=== PATIENT | male | born 1955 | race African-American/Black ===

== ENCOUNTER 2016-08-09 10:25 | Emergency (ER) | payer OTHER ==
[2016-08-09 10:31] VITALS: BP 133/77; PULSE 84; TEMP 97.9; BMI 29.5
[2016-08-09] MEDS ORDERED: IBUPROFEN 600 MG TABLET (FP) PO ONE ×2 (11:25→11:28)
--- NOTE | 2016-08-09 11:30 | PDOC ---
History of Present Illness - General Chief Complaint: Respiratory Stated Complaint: HEADACHE, COUGH Time Seen by Provider: 08/09/16 11:03 History Source: Patient Exam Limitations: No Limitations - History of Present Illness Timing/Duration: reports: changing over time, getting worse Past History - Travel Traveled outside of the country in the last 30 days: No Close contact w/someone who was outside of country & ill: No - Past Medical History Allergies/Adverse Reactions: Allergies Allergy/AdvReac Type Severity Reaction Status Date / Time No Known Drug Allergies Allergy Verified 08/09/16 10:31 Home Medications: Ambulatory Orders Celecoxib [Celebrex] 200 mg PO BID 12/02/13 Losartan 50Mg/Hctz 12.5MG [Hyzaar -] 1 tab PO DAILY 04/11/15 Metoprolol Tartrate 25 mg PO BID 04/11/15 Tofacitinib Citrate [Xeljanz] 5 mg PO BID 04/11/15 Methotrexate [Mexate -] 20 mg PO Q7D 09/18/15 Amlodipine Besylate [Norvasc -] 5 mg PO DAILY 08/09/16 Oseltamivir Phosphate [Tamiflu -] 75 mg PO BID #10 capsule 08/09/16 Anemia: No Asthma: No Cancer: No Cardiac Disorders: Yes CVA: No COPD: No CHF: No Dementia: No Diabetes: No GI Disorders: Yes (chronic constipation since 2009) Disorders: No HTN: Yes Hypercholesterolemia: No Liver Disease: No Suicide Attempt (Hx): No Seizures: No Thyroid Disease: No Other medical history: ARTHRITIS - Surgical History Abdominal Surgery: No Appendectomy: No Cardiac Surgery: No Cholecystectomy: No Lung Surgery: No Neurologic Surgery: No Orthopedic Surgery: Yes (Right Knee Replacement) - Family Disease History Family Disease History: Heart Disease: Father (htn) - Immunization History Td Vaccination: Yes Immunization Up to Date: Yes - Psycho/Social/Smoking Cessation Hx Anxiety: No Suicidal Ideation: No Smoking Status: Yes Smoking History: Former smoker Have you smoked in the past 12 months: No Number of Cigarettes Smoked Daily: 15 If you are a former smoker, when did you quit?: 2000 Information on smoking cessation initiated: No Hx Alcohol Use: No Drug/Substance Use Hx: No Substance Use Type: None Hx Substance Use Treatment: No *Physical Exam - Vital Signs Last Vital Signs Temp Pulse Resp BP Pulse Ox 97.9 F 84 18 133/77 96 08/09/16 10:27 08/09/16 10:27 08/09/16 10:27 08/09/16 10:27 08/09/16 10:27 - Physical Exam General Appearance: Yes: Appropriately Dressed, Mild Distress HEENT: positive: NEERU, Normal ENT Inspection, TMs Normal (congestive but landmarks easily visualized), Pharyngeal Erythema (clear), Tonsillar Erythema, Nasal Congestion, Rhinorrhea Neck: positive: Supple, Lymphadenopathy (R), Lymphadenopathy (L). negative: Tender Respiratory/Chest: positive: Lungs Clear, Normal Breath Sounds. negative: Respiratory Distress Cardiovascular: positive: Regular Rhythm, Regular Rate Gastrointestinal/Abdominal: positive: Tender, Soft Musculoskeletal: positive: Normal Inspection Extremity: positive: Normal Capillary Refill, Normal Inspection, Normal Range of Motion Integumentary: positive: Dry, Warm, Pale. negative: Normal Color Neurologic: positive: cone winder II-XII NML intact, Fully Oriented, Alert, Normal Mood/ Affect, Normal Response, Motor Strength 5/5 Progress Note - Progress Note Progress Note: Upper respiratory infection, probable influenza. Will treat with Tamiflu *DC/Admit/Observation/Transfer Diagnosis at time of Disposition: Upper respiratory infection, acute - Discharge Dispostion Disposition: HOME Condition at time of disposition: Stable Admit: No - Prescriptions Prescriptions: Oseltamivir Phosphate [Tamiflu -] 75 mg PO BID #10 capsule - Referrals Referrals: Da Lemus MD [Primary Care Provider] - - Patient Instructions Printed Discharge Instructions: DI for Influenza -- Adult Additional Instructions: Rest, drink lots of fluids: Teas, water, soups, Pedialyte Saltwater gargles Steamy showers/seem to face break up mucus Old-fashioned treatments help! Avoid contact with others until fevers and cough resolved as this is very contagious Lots of handwashing and good hygiene Continue [id number] medications for symptomatic relief Tylenol or Motrin for fever and pain Take all of Tamiflu as directed: 1 tab every 12 hours for 5 days Followup with private physician in one to 2 days as needed or if worsening Return to emergency department for worsened symptoms, fevers, dehydration Influenza takes between 5 and 7 days for resolution To not participate in any activity, work, or school until fevers and cough are gone for at least one day
== END 2016-08-09 11:40 | disposition home or self-care (01) ==
LOC: JERFT 10:25
DX: J06.9 Acute upper respiratory infection, unspecified (principal); I10 Essential (primary) hypertension; M12.9 Arthropathy, unspecified
CPT/HCPCS: 99281-25

== ENCOUNTER 2016-08-24 16:43 | Emergency (ER) | payer OTHER ==
[2016-08-24 16:47] VITALS: BP 156/99; PULSE 78; TEMP 98; BMI 29.5
--- NOTE | 2016-08-24 16:47 | PDOC ---
Rapid Medical Evaluation Time Seen by Provider: 08/24/16 16:44 Medical Evaluation: Allergies Allergy/AdvReac Type Severity Reaction Status Date / Time No Known Drug Allergies Allergy Verified 08/09/16 10:31 08/24/16 16:45 Pt comes s/p back surgery; now his right back is "killing" him. Back surgery was 5 months ago and he had a laminectomy at [facility]. Pt last saw the surgeon last week. Jaylin sent hank for an MRI, and now states that he needs another surgery. Pt was a building platform on [employer] and he slipped and fell. He is out on disabililty. Pt will be sent to fast track for evaluation and for pain med refill.
[2016-08-24] MEDS ORDERED: KETOROLAC TROMETHAMINE 60 MG/2 ML VIAL IM ONE (17:19)
[2016-08-24] MEDS ORDERED: KETOROLAC TROMETHAMINE 60 MG/2 ML VIAL ONE ×2 (17:20→17:21)
[2016-08-24] MEDS ORDERED: OXYCODONE/APAP 5/325MG COMBO TABLET PO ONE (19:14)
[2016-08-24] MEDS ORDERED: diazePAM 5 MG TABLET PO ONE (19:14)
[2016-08-24] MEDS ORDERED: diazePAM 5 MG TABLET ONE (19:20)
[2016-08-24] MEDS ORDERED: OXYCODONE/APAP 5/325MG COMBO TABLET ONE (19:20)
--- NOTE | 2016-08-24 20:17 | PDOC ---
History of Present Illness - General Chief Complaint: Pain Stated Complaint: POST OP PAIN Time Seen by Provider: 08/24/16 16:44 History Source: Patient Exam Limitations: No Limitations - History of Present Illness Initial Comments: 08/24/16 20:11 Chronic LBP; do for 2nd back surgery; with severe pain; also coughing; Occurred: reports: last week Severity: reports: moderate Pain Location: reports: back Method of Injury: Yes: other (no trauma) Past History - Past Medical History Allergies/Adverse Reactions: Allergies Allergy/AdvReac Type Severity Reaction Status Date / Time No Known Drug Allergies Allergy Verified 08/24/16 16:48 Home Medications: Ambulatory Orders Celecoxib [Celebrex] 200 mg PO BID 12/02/13 Losartan 50Mg/Hctz 12.5MG [Hyzaar -] 1 tab PO DAILY 04/11/15 Metoprolol Tartrate 25 mg PO BID 04/11/15 Tofacitinib Citrate [Xeljanz] 5 mg PO BID 04/11/15 Methotrexate [Mexate -] 20 mg PO Q7D 09/18/15 Amlodipine Besylate [Norvasc -] 5 mg PO DAILY 08/09/16 Oseltamivir Phosphate [Tamiflu -] 75 mg PO BID #10 capsule 08/09/16 Anemia: No Asthma: No Cancer: No Cardiac Disorders: Yes CVA: No COPD: No CHF: No Dementia: No Diabetes: No GI Disorders: Yes (chronic constipation since 2009) Disorders: No HTN: Yes Hypercholesterolemia: No Liver Disease: No Suicide Attempt (Hx): No Seizures: No Thyroid Disease: No - Surgical History Abdominal Surgery: No Appendectomy: No Cardiac Surgery: No Cholecystectomy: No GI Surgery: Yes (PROSTATE) Lung Surgery: No Neurologic Surgery: No Orthopedic Surgery: Yes (Right Knee Replacement) - Family Disease History Family Disease History: Heart Disease: Father (htn) - Immunization History Td Vaccination: Yes Immunization Up to Date: Yes - Psycho/Social/Smoking Cessation Hx Anxiety: No Suicidal Ideation: No Smoking Status: Yes Smoking History: Never smoked Have you smoked in the past 12 months: No Number of Cigarettes Smoked Daily: 15 If you are a former smoker, when did you quit?: 2000 Information on smoking cessation initiated: No Hx Alcohol Use: No Drug/Substance Use Hx: No Substance Use Type: None Hx Substance Use Treatment: No Trauma Specific PMHX - Complaint Specific PMHX Arthritis: Yes Review of Systems - Review of Systems Constitutional: No: Symptoms Reported, Chills, Fever, Malaise HEENTM: Yes: Nose Pain, Nose Congestion Respiratory: Yes: Cough. No: SOB at Rest, Stridor, Wheezing, Hemoptysis Cardiac (ROS): No: Symptoms Reported ABD/GI: No: Symptoms Reported : No: Symptoms Reported Musculoskeletal: Yes: Back Pain. No: Joint Swelling, Muscle Pain, Neck Pain Integumentary: No: Bruising Neurological: No: Numbness, Paresthesia, Tingling (no new symptoms; pain radiates down left leg) *Physical Exam - Vital Signs Last Vital Signs Temp Pulse Resp BP Pulse Ox 98 F 78 18 156/99 98 08/24/16 16:44 08/24/16 16:44 08/24/16 16:44 08/24/16 16:44 08/24/16 16:44 - Physical Exam General Appearance: No: Appropriately Dressed, Apparent Distress HEENT: positive: TMs Normal, Nasal Congestion Neck: positive: Supple. negative: Tender, Rigid Respiratory/Chest: positive: Lungs Clear, Rales, Rhonchi, Stridor, Wheezing. negative: Accessory Muscle Use Musculoskeletal: positive: Other (tender to area left SI joint) ED Treatment Course - RADIOLOGY Radiology Studies Ordered: Category Date Time Status CHEST PA & LAT [RAD] Stat Radiology 08/24/16 17:19 Taken - Medications Given in the ED: ED Medications Discontinued Medications Generic Name Dose Route Start Last Admin Trade Name Freq PRN Reason Stop Dose Admin Diazepam 5 mg 08/24/16 19:14 08/24/16 19:22 Valium - PO 08/24/16 19:15 5 mg ONCE ONE Administration Ketorolac Tromethamine 60 mg 08/24/16 17:19 08/24/16 17:24 Toradol Injection - IM 08/24/16 17:20 60 mg ONCE ONE Administration Oxycodone/Acetaminophen 1 combo 08/24/16 19:14 08/24/16 19:22 Percocet 5/325 - PO 08/24/16 19:15 1 combo ONCE ONE Administration Medical Decision Making - Medical Decision Making 08/24/16 20:15 chest xray= clear; feeling better post toradol; then Percocet and valium; will send home with *DC/Admit/Observation/Transfer Diagnosis at time of Disposition: Bronchitis, Lumbar radiculopathy Sciatica Qualifiers: Laterality: left Qualified Code(s): M54.32 - Sciatica, left side - Discharge Dispostion Disposition: HOME Condition at time of disposition: Stable Admit: No - Patient Instructions Additional Instructions: please call and see surgeon in [place] - Post Discharge Activity Work/School Note: Back to Work
== END 2016-08-24 20:39 | disposition home or self-care (01) ==
LOC: JERFT 16:43
PROC: 3E0233Z Introduction of Anti-inflammatory into Muscle, Percutaneous Approach (ICD-10-PCS; principal; 2016-08-24)
DX: J40 Bronchitis, not specified as acute or chronic (principal); M54.16 Radiculopathy, lumbar region; M54.32 Sciatica, left side; G89.29 Other chronic pain; Z87.891 Personal history of nicotine dependence; Z96.651 Presence of right artificial knee joint; I51.9 Heart disease, unspecified
CPT/HCPCS: 71020-TC; 99281-25

== ENCOUNTER 2016-11-15 11:10 | Emergency (ER) | payer OTHER ==
--- NOTE | 2016-11-15 11:46 | PDOC ---
History of Present Illness - General History Source: Patient Exam Limitations: No Limitations - History of Present Illness Initial Comments: 11/15/16 12:08 The patient is a 61 year old male, with a significant past medical history of Rheumatoid arthritis and HTN, who presents to the emergency department with left foot, ankle and lower extremity swelling with pain for the past 10 days. He denies any kind of injuries to the area. He notes that he was able to get an ultrasound of the lower extremity by his PMD last week that was withing normal limits. He states that his HTN medication was recently changed. He reports that he has been experiencing mild blurry vision for the past year, has followed up with his PMD and opthamologist, with all tests coming back negative. The patient denies chest pain, shortness of breath, headache and dizziness. Denies fever, chills, nausea, vomit, diarrhea and constipation. Allergies: None Past surgical history: Right knee replacement, prostate surgery Social history: No alcohol, tobacco or drug use reported PMD - Dr. Da Lemus [employer] - Dr. Villatoro <Emile Escalera - Last Filed: 11/15/16 15:19> <Jm Mckenzie - Last Filed: 11/15/16 15:39> - General Chief Complaint: Edema Stated Complaint: SWOLLEN LT FOOT Time Seen by Provider: 11/15/16 11:41 Past History <Emile Escalera - Last Filed: 11/15/16 15:19> - Past Medical History Anemia: No Asthma: No Cancer: No Cardiac Disorders: Yes CVA: No COPD: No CHF: No Dementia: No Diabetes: No GI Disorders: Yes (chronic constipation since 2009) Disorders: No HTN: Yes Hypercholesterolemia: No Liver Disease: No Suicide Attempt (Hx): No Seizures: No Thyroid Disease: No Other medical history: arithritis - Surgical History Abdominal Surgery: No Appendectomy: No Cardiac Surgery: No Cholecystectomy: No GI Surgery: Yes (PROSTATE) Lung Surgery: No Neurologic Surgery: No Orthopedic Surgery: Yes (Right Knee Replacement) - Family Disease History Family Disease History: Heart Disease: Father (htn) - Immunization History Td Vaccination: Yes Immunization Up to Date: Yes - Psycho/Social/Smoking Cessation Hx Anxiety: No Suicidal Ideation: No Smoking Status: Yes Smoking History: Former smoker Have you smoked in the past 12 months: No Number of Cigarettes Smoked Daily: 15 If you are a former smoker, when did you quit?: 2000 Information on smoking cessation initiated: No Hx Alcohol Use: No Drug/Substance Use Hx: No Substance Use Type: None Hx Substance Use Treatment: No <Jm Mckenzie - Last Filed: 11/15/16 15:39> - Past Medical History Allergies/Adverse Reactions: Allergies Allergy/AdvReac Type Severity Reaction Status Date / Time No Known Drug Allergies Allergy Verified 11/15/16 11:19 Home Medications: Ambulatory Orders Celecoxib [Celebrex] 200 mg PO BID 12/02/13 Tofacitinib Citrate [Xeljanz] 5 mg PO BID 04/11/15 Amlodipine Besylate [Norvasc -] 5 mg PO DAILY 08/09/16 Clonidine HCl [Catapres] 0.1 mg PO BID #60 tablet 11/15/16 Hydralazine HCl [Apresoline -] 75 mg PO BID 11/15/16 Losartan/Hydrochlorothiazide [Losartan-Hctz 100-25 mg Tab] 1 each PO DAILY 11/15 Metoprolol Succinate [Toprol Xl] 50 mg PO DAILY 11/15/16 Sulfasalazine [Azulfidine] 500 mg PO BID 11/15/16 Review of Systems - Review of Systems Able to Perform ROS?: Yes Comments:: 11/15/16 12:09 GENERAL/CONSTITUTIONAL: No fever or chills. No weakness. HEAD, EYES, EARS, NOSE AND THROAT: No change in vision. No ear pain or discharge. No sore throat. CARDIOVASCULAR: No chest pain or shortness of breath RESPIRATORY: No cough, wheezing, or hemoptysis. GASTROINTESTINAL: No nausea, vomiting, diarrhea or constipation. GENITOURINARY: No dysuria, frequency, or change in urination. MUSCULOSKELETAL: No joint or muscle swelling or pain. No neck or back pain. EXTREMITIES: (+) Left lower extremity pain and swelling. SKIN: No rash NEUROLOGIC: No headache, vertigo, loss of consciousness, or change in strength/ sensation. ENDOCRINE: No increased thirst. No abnormal weight change HEMATOLOGIC/LYMPHATIC: No anemia, easy bleeding, or history of blood clots. ALLERGIC/IMMUNOLOGIC: No hives or skin allergy. <Emile Escalera - Last Filed: 11/15/16 15:19> *Physical Exam - Vital Signs Last Vital Signs Temp Pulse Resp BP Pulse Ox 98.0 F 88 18 123/76 100 11/15/16 11:20 11/15/16 11:20 11/15/16 11:20 11/15/16 11:20 11/15/16 11:53 - Physical Exam Comments: 11/15/16 12:09 GENERAL: Awake, alert, and fully oriented, in no acute distress HEAD: No signs of trauma, normocephalic, atraumatic EYES: PERRLA, EOMI, sclera anicteric, conjunctiva clear ENT: Auricles normal inspection, hearing grossly normal, nares patent, oropharynx clear without exudates. Moist mucosa NECK: Normal ROM, supple, no lymphadenopathy, JVD, or masses LUNGS: No distress, speaks full sentences, clear to auscultation bilaterally HEART: Regular rate and rhythm, normal S1 and S2, no murmurs, rubs or gallops, peripheral pulses normal and equal bilaterally. ABDOMEN: Soft, nontender, normoactive bowel sounds. No guarding, no rebound. No masses EXTREMITIES: (+) Left lower extremity Keon sign and homans sign positive. Normal range of motion, no edema. No clubbing or cyanosis. NEUROLOGICAL: Cranial nerves II through XII grossly intact. Normal speech, normal gait, no focal sensorimotor deficits SKIN: Warm, Dry, normal turgor, no rashes or lesions noted. <Emile Escalera - Last Filed: 11/15/16 15:19> - Vital Signs Last Vital Signs Temp Pulse Resp BP Pulse Ox 98.0 F 88 18 123/76 100 11/15/16 11:20 11/15/16 11:20 11/15/16 11:20 11/15/16 11:20 11/15/16 11:20 <Jm Mckenzie - Last Filed: 11/15/16 15:39> ED Treatment Course - LABORATORY CBC & Chemistry Diagram: 11/15/16 12:30 11/15/16 12:30 <Emile Escalera - Last Filed: 11/15/16 15:19> - LABORATORY CBC & Chemistry Diagram: 11/15/16 12:30 11/15/16 12:30 <Jm Mckenzie - Last Filed: 11/15/16 15:39> Medical Decision Making - Medical Decision Making 11/15/16 15:19 Dr. Musa Lemus was called regarding the patient at 1:34pm. Dr. Lemus was consulted regarding the patient at 2:38pm [phone] <Emile Escalerae - Last Filed: 11/15/16 15:19> *DC/Admit/Observation/Transfer - Attestations Scribe Attestion: 11/15/16 12:09 Documentation prepared by Emile Escalera, acting as medical videographer for Jm Mckenzie MD <Emile Escalera - Last Filed: 11/15/16 15:19> - Discharge Dispostion Admit: No - Attestations Physician Attestion: 11/15/16 11:45 I, Dr. Jm Mckenzie, attest that this document has been prepared under my direction and personally reviewed by me in its entirety. I further attest, that it accurately reflects all work, treatment, procedures and medical decision -making performed by me. <Jm Mckenzie - Last Filed: 11/15/16 15:39> Diagnosis at time of Disposition: Swelling of left lower extremity Hypertension Qualifiers: Hypertension type: essential hypertension Qualified Code(s): I10 - Essential ( primary) hypertension - Discharge Dispostion Disposition: HOME Condition at time of disposition: Unchanged/Unknown - Referrals Referrals: Da Lemus MD [Primary Care Provider] - - Patient Instructions Printed Discharge Instructions: DI for Dependent Edema Additional Instructions: Mr Olsen- I spoke with your doctor and we went over all your test results and your negative for DVT Ultrasound. We think it may be the amlodipine that is causing the swelling in your leg so stop that drug and go back to Clonadined .1 twice a day. I sent a prescription to your pharmacy. See your primary care physician in his office on thrusday. Off work until then. Best- Dr. Jm Mckenzie
[2016-11-15 12:45] LABS: BASOPHIL 0.6 % (0-2.0); EOSINOPHIL 2.3 % (0-4.5); MCH 30.7 pg (25.7-33.7); MCHC 33.2 g/dl (32.0-35.9); MEAN CELL VOLUME 92.7 fl (80-96); MEAN PLT VOLUME 8.9 fl (7.5-11.1); NEUTROPHILS 48.7 % (42.8-82.8); PLATELET COUNT 138 K/MM3 (134-434); RDW 15.2 % (11.9-15.9); WHITE BLOOD COUNT 3.8 K/mm3 (4.0-10.0)
[2016-11-15 13:04] LABS: INR 0.96 (0.82-1.09); PROTHROMBIN TIME (PATIENT) 10.5 SEC (9.98-11.88)
[2016-11-15 13:11] LABS: ALBUMIN 4.1 g/dl (3.4-5.0); ALK PHOS 81 U/L (45-117); ANION GAP 8 (8-16); BILIRUBIN,TOTAL 0.5 mg/dL (0.2-1.0); C-REACTIVE PROTEIN 0.4 MG/DL (0.00-0.3); CALCIUM 9.7 mg/dL (8.5-10.1); CO2 31 mmol/L (21-32); COCKROFT - GAULT 113.47; GLUCOSE,RANDOM 90 mg/dL (74-106); SGOT/AST 33 U/L (15-37); SGPT/ALT 39 U/L (12-78); TOT PROT 7.5 g/dl (6.4-8.2)
[2016-11-15 14:11] LABS: URIC ACID 5.9 mg/dL (2.6-7.2)
[2016-11-15 15:49] VITALS: BP 138/89; PULSE 62; TEMP 98.2
[2016-11-15 15:52] LABS: ERYTHROCYTE SEDIMENTATION RATE 10 mm/hr (0-20)
== END 2016-11-15 15:49 | disposition home or self-care (01) ==
LOC: JER 11:10
DX: M79.89 Other specified soft tissue disorders (principal); I10 Essential (primary) hypertension; M06.9 Rheumatoid arthritis, unspecified; Z96.651 Presence of right artificial knee joint
CPT/HCPCS: 36415; 80053; 84550; 85025; 85610; 85651; 86038; 86140; 86431; 93971-TC; 99283-25

== ENCOUNTER 2017-05-23 07:45 | Emergency (ER) | payer OTHER ==
[2017-05-23 07:54] VITALS: TEMP 97.8; BMI 29.8
[2017-05-23] MEDS ORDERED: KETOROLAC TROMETHAMINE 60 MG/2 ML VIAL IM ONE (08:04)
[2017-05-23] MEDS ORDERED: CYCLOBENZAPRINE HCL 5 MG TABLET PO ONE (08:04)
--- NOTE | 2017-05-23 08:09 | PDOC ---
History of Present Illness - General Chief Complaint: Back Pain Stated Complaint: BACK PAIN Time Seen by Provider: 05/23/17 07:59 History Source: Patient - History of Present Illness Occurred: reports: other Severity: reports: severe Pain Location: reports: back Past History - Past Medical History Allergies/Adverse Reactions: Allergies Allergy/AdvReac Type Severity Reaction Status Date / Time No Known Drug Allergies Allergy Verified 05/23/17 07:47 Home Medications: Ambulatory Orders Celecoxib [Celebrex] 200 mg PO BID 12/02/13 Tofacitinib Citrate [Xeljanz] 5 mg PO BID 04/11/15 Hydralazine HCl [Apresoline -] 75 mg PO BID 11/15/16 Losartan/Hydrochlorothiazide [Losartan-Hctz 100-25 mg Tab] 1 each PO DAILY 11/15 Metoprolol Succinate [Toprol Xl] 50 mg PO BID 11/15/16 Sulfasalazine [Azulfidine] 500 mg PO BID 11/15/16 Oxycodone HCl/Acetaminophen [Percocet 5-325 mg Tablet] 1 tab PO Q6H PRN Anemia: No Asthma: No Cancer: No Cardiac Disorders: Yes CVA: No COPD: No CHF: No Dementia: No Diabetes: No GI Disorders: Yes (chronic constipation since 2009) Disorders: No HTN: Yes Hypercholesterolemia: No Liver Disease: No Seizures: No Thyroid Disease: No - Surgical History Abdominal Surgery: No Appendectomy: No Cardiac Surgery: No Cholecystectomy: No GI Surgery: Yes (PROSTATE) Lung Surgery: No Neurologic Surgery: Yes (LOWER BACK) Orthopedic Surgery: Yes (Right Knee Replacement) - Family Disease History Family Disease History: Heart Disease: Father (htn) - Immunization History Td Vaccination: Yes Immunization Up to Date: Yes - Suicide/Smoking/Psychosocial Hx Smoking Status: Yes Smoking History: Former smoker Have you smoked in the past 12 months: No Number of Cigarettes Smoked Daily: 15 If you are a former smoker, when did you quit?: 2000 Information on smoking cessation initiated: No Hx Alcohol Use: No Drug/Substance Use Hx: No Substance Use Type: None Hx Substance Use Treatment: No Trauma Specific PMHX - Complaint Specific PMHX Arthritis: Yes Review of Systems - Review of Systems Constitutional: No: Chills, Fever Musculoskeletal: Yes: Back Pain. No: Muscle Weakness Neurological: No: Numbness, Tingling, Weakness *Physical Exam - Vital Signs Last Vital Signs Temp Pulse Resp BP Pulse Ox 97.8 F 81 20 165/100 99 05/23/17 07:49 05/23/17 07:49 05/23/17 07:49 05/23/17 07:49 05/23/17 07:49 - Physical Exam Comments: 05/23/17 08:09 Sitting on stretcher with back brace in place, able to ambulate in ED General Appearance: Yes: Appropriately Dressed. No: Apparent Distress HEENT: positive: Normal Voice Neck: positive: Supple Respiratory/Chest: negative: Respiratory Distress Gastrointestinal/Abdominal: positive: Soft. negative: Tender Musculoskeletal: negative: CVA Tenderness Integumentary: positive: Dry, Warm Neurologic: positive: Fully Oriented, Alert, Normal Mood/Affect, Motor Strength 5/5 Medical Decision Making - Medical Decision Making 05/23/17 08:05 61 yo male, HTN, arthritis, s/p laminectomy/fusion to lower back, chronic back pain, f/u with ortho spine and pain management, on oxycodone at home and undergoing PT 3 times a week, here w/ gradual worsening of his back pain of unclear duration. Pain severe, located to mid back and does not radiate. States PT makes pain worse and oxycodone not helping, Schedule to see ortho in 2 weeks. No LE weakness, saddle anesthesia or B/B incontinence. is able to ambulate See exam Acute on chronic LBP S/p spinal surgeries in 2016 On percocet and undergoing PT sessions w/ no relief F/u with pain and ortho spine, w/ appt in 2 weeks No red flags at this time, i.e cauda equina -pain control in ED and reasess 05/23/17 10:53 Pain better w/ meds. Will dc to f/u with his pain management MD today *DC/Admit/Observation/Transfer Diagnosis at time of Disposition: Low back pain Qualifiers: Chronicity: acute Back pain laterality: midline Sciatica presence: without sciatica Qualified Code(s): M54.5 - Low back pain - Discharge Dispostion Disposition: HOME Condition at time of disposition: Improved - Referrals Referrals: Da Lemus MD [Primary Care Provider] - - Patient Instructions Printed Discharge Instructions: Low Back Pain Additional Instructions: Please call your pain management doctor today and make an appointment to be seen for further control of your chronic back pain - Post Discharge Activity
[2017-05-23] MEDS ORDERED: KETOROLAC TROMETHAMINE 60 MG/2 ML VIAL ONE (08:26)
[2017-05-23] MEDS ORDERED: CYCLOBENZAPRINE HCL 10 MG TABLET (FP) ONE (08:26)
[2017-05-23] MEDS ORDERED: morphine CARPU-JECT 4 MG/1 ML DISP.SYRIN IM ONE (10:12)
[2017-05-23] MEDS ORDERED: morphine SULFATE 4 MG/ML VIAL ONE (10:25)
[2017-05-23 11:11] VITALS: BP 136/86; PULSE 79
== END 2017-05-23 12:09 | disposition home or self-care (01) ==
LOC: JER 07:45
PROC: 3E023NZ Introduction of Analgesics, Hypnotics, Sedatives into Muscle, Percutaneous Approach (ICD-10-PCS; principal; 2017-05-23)
DX: M54.5 Low back pain (principal); I10 Essential (primary) hypertension; M12.9 Arthropathy, unspecified
CPT/HCPCS: 99284-25

== ENCOUNTER 2017-09-14 17:23 | Emergency (ER) | payer OTHER ==
[2017-09-14 17:32] VITALS: BP 147/97; PULSE 93; TEMP 97.6; BMI 30.3
--- NOTE | 2017-09-14 17:33 | PDOC ---
Rapid Medical Evaluation Chief Complaint: Back Pain Time Seen by Provider: 09/14/17 17:29 Medical Evaluation: Allergies Allergy/AdvReac Type Severity Reaction Status Date / Time No Known Drug Allergies Allergy Verified 05/23/17 07:47 09/14/17 17:30 I have performed a brief in-person evaluation of this patient. The patient presents with a chief complaint of: worsening LBP. H/o laminectomy, chronic back pain, f/u with ortho spine, on oxycodone, undergoing PT Pertinent physical exam findings:Stable in NAD w/ back brace in place I have ordered the following: nothing The patient will proceed to the ED for further evaluation. Discharge Disposition - Diagnosis Low back pain Qualifiers: Chronicity: unspecified Back pain laterality: unspecified Sciatica presence: without sciatica Qualified Code(s): M54.5 - Low back pain - Referrals - Patient Instructions - Post Discharge Activity
[2017-09-14] MEDS ORDERED: KETOROLAC TROMETHAMINE 30 MG/1 ML VIAL IM ONE (19:20)
[2017-09-14] MEDS ORDERED: KETOROLAC TROMETHAMINE 30 MG/1 ML VIAL ONE (19:24)
--- NOTE | 2017-09-14 19:27 | PDOC ---
History of Present Illness - General Chief Complaint: Back Pain Stated Complaint: PAIN Time Seen by Provider: 09/14/17 17:29 History Source: Patient Exam Limitations: No Limitations - History of Present Illness Initial Comments: 09/14/17 19:20 This is 61-year-old male past medical history of laminectomy and spinal fusion in November 2016 who presents to emergency department with acute on chronic lower back pain radiating to bilateral hips and bilateral lower extremities. Patient states the pain is only gotten worse since the surgery. Patient has not contacted his spinal surgeon regarding this acute issue. Patient states she has an appointment next week which she will follow-up at at that time. Patient denies any new trauma, numbness or tingling, saddle anesthesia, incontinence of bladder or bowel. Past History - Past Medical History Allergies/Adverse Reactions: Allergies Allergy/AdvReac Type Severity Reaction Status Date / Time No Known Drug Allergies Allergy Verified 09/14/17 17:32 Home Medications: Ambulatory Orders Celecoxib [Celebrex] 200 mg PO BID 12/02/13 Tofacitinib Citrate [Xeljanz] 5 mg PO BID 04/11/15 Losartan/Hydrochlorothiazide [Losartan-Hctz 100-25 mg Tab] 1 each PO DAILY 11/15 Metoprolol Succinate [Toprol Xl] 50 mg PO BID 11/15/16 Sulfasalazine [Azulfidine] 500 mg PO BID 11/15/16 hydrALAZINE HCL [Apresoline -] 75 mg PO BID 11/15/16 Oxycodone HCl/Acetaminophen [Percocet 5-325 mg Tablet] 1 tab PO Q6H PRN Methocarbamol [Robaxin -] 1,500 mg PO Q8H PRN #30 tablet 09/14/17 Anemia: No Asthma: No Cancer: No Cardiac Disorders: Yes CVA: No COPD: No CHF: No Dementia: No Diabetes: No GI Disorders: Yes (chronic constipation since 2009) Disorders: No HTN: Yes Hypercholesterolemia: No Liver Disease: No Seizures: No Thyroid Disease: No - Surgical History Abdominal Surgery: No Appendectomy: No Cardiac Surgery: No Cholecystectomy: No GI Surgery: Yes (PROSTATE) Lung Surgery: No Neurologic Surgery: Yes (LOWER BACK) Orthopedic Surgery: Yes (Right Knee Replacement) - Family Disease History Family Disease History: Heart Disease: Father (htn) - Immunization History Td Vaccination: Yes Immunization Up to Date: Yes - Suicide/Smoking/Psychosocial Hx Smoking Status: Yes Smoking History: Never smoked Have you smoked in the past 12 months: No Number of Cigarettes Smoked Daily: 15 If you are a former smoker, when did you quit?: 2000 Information on smoking cessation initiated: No Hx Alcohol Use: No Drug/Substance Use Hx: No Substance Use Type: None Hx Substance Use Treatment: No Trauma Specific PMHX - Complaint Specific PMHX Arthritis: Yes Review of Systems - Review of Systems Able to Perform ROS?: Yes Is the patient limited Greek proficient: No Constitutional: No: Symptoms Reported HEENTM: No: Symptoms Reported Respiratory: No: Symptoms reported Cardiac (ROS): No: Symptoms Reported ABD/GI: No: Symptoms Reported : No: Symptoms Reported Musculoskeletal: Yes: See HPI Integumentary: No: Symptoms Reported Neurological: No: Symptoms reported *Physical Exam - Vital Signs Last Vital Signs Temp Pulse Resp BP Pulse Ox 97.6 F 93 H 18 147/97 99 09/14/17 17:29 09/14/17 17:29 09/14/17 17:29 09/14/17 17:29 09/14/17 17:29 - Physical Exam General Appearance: Yes: Appropriately Dressed. No: Apparent Distress HEENT: positive: Normal ENT Inspection Neck: positive: Trachea midline, Supple Respiratory/Chest: positive: Lungs Clear, Normal Breath Sounds. negative: Respiratory Distress, Accessory Muscle Use Cardiovascular: positive: Regular Rhythm, Regular Rate. negative: Murmur Gastrointestinal/Abdominal: positive: Normal Bowel Sounds, Soft. negative: Tender Musculoskeletal: positive: Normal Inspection. negative: CVA Tenderness, Muscle Spasm, Vertebral Tenderness Extremity: positive: Normal Capillary Refill, Normal Inspection, Normal Range of Motion Integumentary: positive: Normal Color, Dry, Warm Neurologic: positive: Fully Oriented, Alert, Normal Response, Motor Strength 5/5 Medical Decision Making - Medical Decision Making 09/14/17 19:23 CC: Acute on chronic lower back pain A/P: 61-year-old male with lower back pain status post laminectomy and spinal fusion in November 2016 presents with acute exacerbation of his lower back pain. Patient will for straight leg raises without difficulty. Strength 4/5 bilaterally in lower extremities. 2+ dorsalis pedis pulses. Full sensation to medial and lateral aspects of lower crepitus No vertebral tenderness noted. Midline lumbar surgical scar noted. Acute on chronic lower back pain Toradol 30 Mgs now Discharge home with follow-up with his primary doctor *DC/Admit/Observation/Transfer Diagnosis at time of Disposition: Low back pain Qualifiers: Chronicity: unspecified Back pain laterality: unspecified Sciatica presence: without sciatica Qualified Code(s): M54.5 - Low back pain - Discharge Dispostion Disposition: HOME Condition at time of disposition: Stable Admit: No - Prescriptions Prescriptions: Methocarbamol [Robaxin -] 1,500 mg PO Q8H PRN #30 tablet PRN Reason: Back Pain - Referrals Referrals: Da Lemus MD [Primary Care Provider] - - Patient Instructions Additional Instructions: Take Tylenol or Motrin as needed for pain. Follow manufacturers instructions for appropriate dosage. Take Robaxin 1500 mg 3 times a day as needed for pain Try not to walk or bear weight as much as possible for the next 3 days. Return to emergency department for discoloration of the foot, numbness or tingling to the foot, worsening pain, or any other concerns. Thank you very much for choosing us to provide your emergent healthcare needs. - Post Discharge Activity
== END 2017-09-14 19:39 | disposition home or self-care (01) ==
LOC: JERFT 17:23 → JER 17:23 → JERFT 19:39
PROC: 3E0233Z Introduction of Anti-inflammatory into Muscle, Percutaneous Approach (ICD-10-PCS; principal; 2017-09-14)
DX: M54.5 Low back pain (principal); G89.29 Other chronic pain; I10 Essential (primary) hypertension; Z87.891 Personal history of nicotine dependence
CPT/HCPCS: 99281-25

== ENCOUNTER 2018-05-17 07:46 | Emergency (ER) | payer OTHER ==
[2018-05-17 08:30] VITALS: BP 161/81; PULSE 90; TEMP 98.4
--- NOTE | 2018-05-17 08:58 | PDOC ---
History of Present Illness - General Stated Complaint: ITCHING Time Seen by Provider: 05/17/18 08:57 History Source: Patient Exam Limitations: No Limitations - History of Present Illness Initial Comments: 05/17/18 09:23 Patient came of worsening itching over total total-body for a few month. Body itching for over a few months. States was seen by his PMD and given hydroxyzine with no resolve. Had made appointment with repairing calibrator and yesterday was turned away due to some questionable insurance issue. Patient denies swelling to lips, tongue, throat. Has no problems with breathing, Patient denies fevers, cough, ear or throat pain, no recent URIs. Denies any changes in soaps, creams, environmental exposures. Has had no recent travel, or known exposures to any allergens or infestations. No one else at home is suffering. Has used multiple [id number] medications with no relief. Timing/Duration: reports: changing over time, getting worse, intermittent Severity: Yes: moderate, severe Location: reports: generalized Respiratory Risk Factors: reports: no cause identified Modifying Factors: improves with: antihistamine, scratching Associated Symptoms: reports: denies symptoms. denies: fever, nasal congestion , sore throat Past History - Travel Traveled outside of the country in the last 30 days: No Close contact w/someone who was outside of country & ill: No - Past Medical History Allergies/Adverse Reactions: Allergies Allergy/AdvReac Type Severity Reaction Status Date / Time No Known Drug Allergies Allergy Verified 05/17/18 09:04 Home Medications: Ambulatory Orders Celecoxib [Celebrex] 200 mg PO BID 12/02/13 Tofacitinib Citrate [Xeljanz] 5 mg PO BID 04/11/15 Losartan/Hydrochlorothiazide [Losartan-Hctz 100-25 mg Tab] 1 each PO DAILY 11/15 Metoprolol Succinate [Toprol Xl] 50 mg PO BID 11/15/16 Sulfasalazine [Azulfidine] 500 mg PO BID 11/15/16 hydrALAZINE HCL [Apresoline -] 75 mg PO BID 11/15/16 Oxycodone HCl/Acetaminophen [Percocet 5-325 mg Tablet] 1 tab PO Q6H PRN Methocarbamol [Robaxin -] 1,500 mg PO Q8H PRN #30 tablet 09/14/17 Cetirizine HCl [Zyrtec -] 10 mg PO DAILY #30 tablet 05/17/18 predniSONE [Deltasone -] 20 mg PO BID #8 tablet 05/17/18 Anemia: No Asthma: No Cancer: No Cardiac Disorders: Yes CVA: No COPD: No CHF: No Dementia: No Diabetes: No GI Disorders: Yes (chronic constipation since 2009) Disorders: No HTN: Yes Hypercholesterolemia: No Liver Disease: No Seizures: No Thyroid Disease: No - Surgical History Abdominal Surgery: No Appendectomy: No Cardiac Surgery: No Cholecystectomy: No GI Surgery: Yes (PROSTATE) Lung Surgery: No Neurologic Surgery: Yes (LOWER BACK) Orthopedic Surgery: Yes (Right Knee Replacement) - Family Disease History Family Disease History: Heart Disease: Father (htn) - Immunization History Td Vaccination: Yes Immunization Up to Date: Yes - Suicide/Smoking/Psychosocial Hx Smoking Status: Yes Smoking History: Former smoker Have you smoked in the past 12 months: No Number of Cigarettes Smoked Daily: 15 If you are a former smoker, when did you quit?: 2000 Information on smoking cessation initiated: No Hx Alcohol Use: No Drug/Substance Use Hx: No Substance Use Type: None Hx Substance Use Treatment: No Review of Systems - Review of Systems Able to Perform ROS?: Yes Is the patient limited Slovenian proficient: Yes Constitutional: Yes: Symptoms Reported, See HPI, Malaise. No: Fever, Loss of Appetite HEENTM: Yes: See HPI. No: Symptoms Reported, Throat Swelling, Difficulty Swallowing Respiratory: Yes: Symptoms reported Integumentary: Yes: Symptoms Reported, See HPI, Pruritus, Rash. No: Lesions Neurological: Yes: See HPI. No: Symptoms reported, Headache All Other Systems: Reviewed and Negative *Physical Exam - Vital Signs Last Vital Signs Temp Pulse Resp BP Pulse Ox 98.4 F 90 18 161/81 100 05/17/18 08:27 05/17/18 08:27 05/17/18 08:27 05/17/18 08:27 05/17/18 08:27 - Physical Exam General Appearance: Yes: Nourished, Appropriately Dressed, Apparent Distress, Mild Distress HEENT: positive: NEERU, Normal ENT Inspection, Normal Voice, TMs Normal, Pharynx Normal, Other (no swelling to face, lips, tongue) Neck: positive: Supple. negative: Tender, Lymphadenopathy (R), Lymphadenopathy (L) Respiratory/Chest: positive: Lungs Clear, Normal Breath Sounds. negative: Chest Tender Cardiovascular: positive: Regular Rate Gastrointestinal/Abdominal: positive: Soft. negative: Tender Extremity: positive: Normal Capillary Refill, Normal Inspection Integumentary: positive: Dry, Warm, Pale, Other (patient with macular keratinized noted on extemities, joint creases, neck folds,face. Blanches and is moderate to severely pruritic in nature. Some eczematous type appearance,but extensiv) Neurologic: positive: reinsurance accountant II-XII NML intact, Fully Oriented, Alert, Normal Mood/ Affect, Normal Response, Motor Strength 5/5 Moderate Sedation - Procedure Monitoring Vital Signs: Procedure Monitoring Vital Signs Temperature 98.4 F 05/17/18 08:27 Pulse Rate 90 05/17/18 08:27 Respiratory Rate 18 05/17/18 08:27 Blood Pressure 161/81 05/17/18 08:27 O2 Sat by Pulse Oximetry (%) 100 05/17/18 08:27 Progress Note - Progress Note Progress Note: No evidence of anaphylaxis, infectiousness, or cellulitis therefore will treat conservatively with short course of prednisone and have follow-up with repairing calibrator for possible skin biopsy *DC/Admit/Observation/Transfer Diagnosis at time of Disposition: Urticaria - Discharge Dispostion Disposition: HOME Condition at time of disposition: Stable Decision to Admit order: No - Prescriptions Prescriptions: Cetirizine HCl [Zyrtec -] 10 mg PO DAILY #30 tablet predniSONE [Deltasone -] 20 mg PO BID #8 tablet - Referrals Referrals: Da Lemus MD [Primary Care Provider] - Lisa Hoffman MD [Staff Physician] - - Patient Instructions Printed Discharge Instructions: Urticaria (Alternative Therapy) Additional Instructions: Rest, keep cool and dry- avoid strenuous activity or hot /humid environments Less hot showers, no abrasive soaps May use heavy creams like Eucerin or Cetaphil to keep skin moist May apply Aveeno, calamine lotion, [id number] hydrocortisone creams as needed for symptoms May use Benadryl at night for antihistamine, Zyrtec/ Mariaelena or Claritin for daytime antihistamine use to help with itching prednisone as dired May use raat-yln-adptiom hydrocortisone cream on all areas except face Try to identify cause for rash and avoid exposures Followup with PMD in one week if no resolution Make appointment with repairing calibrator for evaluation when possible - Post Discharge Activity
== END 2018-05-17 09:31 | disposition home or self-care (01) ==
LOC: JERFT 07:46
DX: L50.9 Urticaria, unspecified (principal)
CPT/HCPCS: 99281-25

== ENCOUNTER 2018-10-18 11:07 | Emergency (ER) | payer OTHER ==
[2018-10-18 11:21] VITALS: BMI 28.8
--- NOTE | 2018-10-18 12:08 | PDOC ---
History of Present Illness - General Chief Complaint: Suicidal Stated Complaint: LWR BACK PAIN Time Seen by Provider: 10/18/18 11:45 History Source: Patient Exam Limitations: No Limitations - History of Present Illness Initial Comments: 10/18/18 12:08 Mr Olsen is a 62 yo M h/o Rheumatoid arthritis and HTN, who presents to the emergency department with a complaint of severe back pain Pt has a h/o lower back injury approximately 5 years ago (while at work, he slipped and fell, injuring himself) Since then he has had chronic back pain and has now had 2 lumbar surgeries (2015 , ) and he has had a nerve root stimulator in July 2018 Since this surgery, he has had NO relief of his pain He has followed up with his neurosurgeon to inform him of the fact that the stimulator has not helped Pt denies recent trauma He denies fevers or chills He has been taking Percocet prn for pain but this has not helped He has adjusted his nerve root stimulator with no effect Pt denies bowel or bladder incontinence The patient denies chest pain, shortness of breath, headache and dizziness. Denies fever, chills, nausea, vomit, diarrhea and constipation. Pt reports that he can not stand this pain any more Pt reports he would rather than continue to have pain like this He does not have a plan He does not have access to fire arms Allergies: None Past surgical history: Right knee replacement, prostate surgery, penile implant , back surgery x 2, nerve root stimulator insertion Social history: No alcohol, tobacco or drug use reported PMD - Dr. Da Lemus [place] [facility] - Dr. Villatoro Neurosurgeon - Dr. Shi - [phone] ROS: GENERAL/CONSTITUTIONAL: No: fever, chills, weakness HEAD, EYES, EARS, NOSE AND THROAT: No: ear pain, discharge, sore throat, throat swelling. CARDIOVASCULAR: No: chest pain, lightheadedness RESPIRATORY: No: cough, shortness of breath, wheezing GASTROINTESTINAL: No: nausea, vomiting, diarrhea, abdominal pain GENITOURINARY: No: dysuria, hematuria, frequency, urgency, flank pain. MUSCULOSKELETAL: Yes: back pain No: neck pain, joint pain, muscle swelling or pain SKIN AND BREASTS: No: lesions, pallor, rash or easy bruising. NEUROLOGIC: Yes: chronic lower extremity weakness No: headache ENDOCRINE: No: unexplained weight gain or loss HEMATOLOGIC/LYMPHATIC: No: anemia, easy bleeding, swelling nodes. PE: GENERAL: The patient is in no acute distress, pt is tearful. HEAD: Normal with no signs of trauma. EYES: PERRLA, EOMI, sclera anicteric, conjunctiva clear. ENT: Ears normal, nares patent, oropharynx clear without exudates. Moist mucous membranes. NECK: Normal range of motion, supple without lymphadenopathy, JVD, or masses. LUNGS: Breath sounds equal, clear to auscultation bilaterally. No wheezes, and no crackles. HEART:Regular rate and rhythm, normal S1 and S2 without murmur, rub or gallop. ABDOMEN: Soft, nontender, normoactive bowel sounds. No guarding, no rebound. No masses palpable. EXTREMITIES: Normal range of motion, no edema. NEUROLOGICAL: Cranial nerves II through XII grossly intact. Normal speech. No focal neurological deficits. MUSCULOSKELETAL: Back non-tender to palpation, no CVA tenderness SKIN: Warm, Dry, normal turgor, no rashes or lesions noted. 10/18/18 12:57 10/18/18 13:23 10/18/18 17:31 Past History - Past Medical History Allergies/Adverse Reactions: Allergies Allergy/AdvReac Type Severity Reaction Status Date / Time No Known Drug Allergies Allergy Verified 10/18/18 11:17 Home Medications: Ambulatory Orders Celecoxib [Celebrex] 200 mg PO BID 12/02/13 Tofacitinib Citrate [Xeljanz] 5 mg PO BID 04/11/15 Losartan/Hydrochlorothiazide [Losartan-Hctz 100-25 mg Tab] 1 each PO DAILY 11/15 Metoprolol Succinate [Toprol Xl] 50 mg PO BID 11/15/16 hydrALAZINE HCL [Apresoline -] 75 mg PO BID 11/15/16 Oxycodone HCl/Acetaminophen [Percocet 5-325 mg Tablet] 1 tab PO Q6H PRN Cetirizine HCl [Zyrtec -] 10 mg PO DAILY #30 tablet 05/17/18 Anemia: No Asthma: No Cancer: No Cardiac Disorders: Yes CVA: No COPD: No CHF: No Dementia: No Diabetes: No GI Disorders: Yes (chronic constipation since 2009) Disorders: No HTN: Yes Hypercholesterolemia: No Liver Disease: No Psychiatric Problems: Yes (DEPRESSION) Seizures: No Thyroid Disease: No - Surgical History Abdominal Surgery: No Appendectomy: No Cardiac Surgery: No Cholecystectomy: No GI Surgery: Yes (PROSTATE) Lung Surgery: No Neurologic Surgery: Yes (LOWER BACK) Orthopedic Surgery: Yes (Right Knee Replacement) - Family Disease History Family Disease History: Heart Disease: Father (htn) - Immunization History Td Vaccination: Yes Immunization Up to Date: Yes - Suicide/Smoking/Psychosocial Hx Smoking Status: Yes Smoking History: Never smoked Have you smoked in the past 12 months: No Number of Cigarettes Smoked Daily: 15 If you are a former smoker, when did you quit?: 2000 Hx Alcohol Use: No Drug/Substance Use Hx: No Substance Use Type: None Hx Substance Use Treatment: No *Physical Exam - Vital Signs Last Vital Signs Temp Pulse Resp BP Pulse Ox 98.3 F 69 18 156/92 100 10/18/18 11:17 10/18/18 11:17 10/18/18 11:17 10/18/18 11:17 10/18/18 11:17 ED Treatment Course - LABORATORY CBC & Chemistry Diagram: 10/18/18 12:44 10/18/18 12:44 Medical Decision Making - Critical Care Time Total Critical Care Time (minutes): 35 Critical Care Statement: The care of this patient involved high complexity decision making to prevent further life threatening deterioration of the patient 's condition and/or to evaluate & treat vital organ system(s) failure or risk of failure. - Medical Decision Making 10/18/18 13:47 Laboratory Tests 10/18/18 10/18/18 12:44 12:44 WBC 4.6 Hgb 12.3 Hct 37.3 Plt Count 241 D BUN 18 Creatinine 1.0 10/18/18 13:56 Pt states to me he has no plan He told the nurse that he was going to jump from a bridge or roof Call placed to Dr. Banda 10/18/18 16:52 Case reviewed with MUNDO Giordano He will see this patient tonight Pt signed out to Dr. porter pending psych consult Clinical Impression: suicidal, initial presentation Chronic back pain, initial presentation *DC/Admit/Observation/Transfer Diagnosis at time of Disposition: Acute depression - Discharge Dispostion Disposition: TRANSFER ACUTE CARE/OTHER HOSP - Referrals Referrals: Da Lemus MD [Primary Care Provider] - - Patient Instructions - Post Discharge Activity Forms/Work/School Notes: My Personal Safety Plan
[2018-10-18] MEDS ORDERED: LIDOCAINE 5% TOPICAL PATCH TP ONE (12:23)
[2018-10-18] MEDS ORDERED: HYDROmorphone HCL CARPU-JECT 2 MG/1 ML DISP.SYRIN IVPB ONE (12:23)
[2018-10-18] MEDS ORDERED: METHOCARBAMOL 500 MG TABLET PO ONE (12:23)
[2018-10-18] MEDS ORDERED: METHOCARBAMOL 500 MG TABLET ONE ×2 (12:46→12:50)
[2018-10-18] MEDS ORDERED: LIDOCAINE 5% TOPICAL PATCH ONE ×3 (12:46→22:44)
[2018-10-18] MEDS ORDERED: HYDROmorphone HCl 2 MG/ML VIAL ONE ×2 (12:46→12:50)
[2018-10-18 12:58] LABS: BASO % 0.6 % (0-2.0); EOS % 1.6 % (0-4.5); HEMATOCRIT 37.3 % (35.4-49); HEMOGLOBIN 12.3 GM/dL (11.7-16.9); LYMPH % 32.1 % (8-40); MCH 30.6 pg (25.7-33.7); MCHC 33.1 g/dl (32.0-35.9); MEAN CELL VOLUME 92.3 fl (80-96); MEAN PLT VOLUME 8.6 fl (7.5-11.1); MONO % 8.7 % (3.8-10.2); PLATELET COUNT 241 K/MM3 (134-434); RBC 4.04 M/mm3 (4.00-5.60); RDW 14.4 % (11.9-15.9); WHITE BLOOD COUNT 4.6 K/mm3 (4.0-10.0)
[2018-10-18 13:20] LABS: ALBUMIN 3.8 g/dl (3.4-5.0); ALK PHOS 59 U/L (45-117); ANION GAP 5 MMOL/L (8-16); BILIRUBIN,TOTAL 0.3 mg/dL (0.2-1); BLOOD UREA NITROGEN 18 mg/dL (7-18); CALCIUM 9.4 mg/dL (8.5-10.1); CHLORIDE 103 mmol/L (98-107); CO2 32 mmol/L (21-32); GLUCOSE,RANDOM 112 mg/dL (74-106); POTASSIUM 3.7 mmol/L (3.5-5.1); SGOT/AST 21 U/L (15-37); SGPT/ALT 28 U/L (13-61); SODIUM 141 mmol/L (136-145); TOT PROT 7.4 g/dl (6.4-8.2)
[2018-10-18 16:04] LABS: COCAINE, UR NEGATIVE ng/ml (CUTOFF=300); METHADONE, UR NEGATIVE ng/ml (CUTOFF=300); PHENCYCLIDINE,URINE NEGATIVE ng/ml (CUTOFF=25); URINE AMPHETAMINES NEGATIVE ng/ml (CUTOFF=500); URINE BARBITURATES NEGATIVE ng/ml (CUTOFF=200); URINE BENZODIAZEPINES NEGATIVE ng/ml (CUTOFF=200)
[2018-10-18 16:24] LABS: OPIATES, URI POSITIVE ng/ml (CUTOFF=300)
--- NOTE | 2018-10-18 19:19 | PDOC ---
*Physical Exam - Vital Signs Last Vital Signs Temp Pulse Resp BP Pulse Ox 98.5 F 89 20 110/64 100 10/18/18 16:48 10/18/18 16:48 10/18/18 16:48 10/18/18 16:48 10/18/18 11:17 ED Treatment Course - LABORATORY CBC & Chemistry Diagram: 10/18/18 12:44 10/18/18 12:44 - ADDITIONAL ORDERS Additional order review: Laboratory Results 10/18/18 10/18/18 10/18/18 14:20 13:53 12:44 Sodium 141 Potassium 3.7 Chloride 103 Carbon Dioxide 32 Anion Gap 5 L BUN 18 Creatinine 1.0 Creat Clearance w eGFR 75.72 Random Glucose 112 H Calcium 9.4 Total Bilirubin 0.3 AST 21 ALT 28 Alkaline Phosphatase 59 Total Protein 7.4 Albumin 3.8 Salicylates < 1.7 L Opiates Screen Positive A* Methadone Screen Negative Acetaminophen < 2.0 L Barbiturate Screen Negative Phencyclidine Screen Negative Ur Amphetamines Screen Negative MDMA (Ecstasy) Screen Negative Benzodiazepines Screen Negative Cocaine Screen Negative U Marijuana (THC) Screen Negative 10/18/18 12:44 RBC 4.04 MCV 92.3 MCHC 33.1 RDW 14.4 D MPV 8.6 Neutrophils % 57.0 Lymphocytes % 32.1 Monocytes % 8.7 Eosinophils % 1.6 D Basophils % 0.6 - Medications Given in the ED: ED Medications Discontinued Medications Generic Name Dose Route Start Last Admin Trade Name Freq PRN Reason Stop Dose Admin Hydromorphone HCl 1 mg 10/18/18 12:23 10/18/18 12:56 Dilaudid Injection - IVPB 10/18/18 12:24 1 mg ONCE ONE Administration Lidocaine 1 patch 10/18/18 12:23 10/18/18 12:57 Lidoderm Patch - TP 10/18/18 12:24 1 patch ONCE ONE Administration Methocarbamol 500 mg 10/18/18 12:23 10/18/18 12:57 Robaxin - PO 10/18/18 12:24 500 mg ONCE ONE Administration Medical Decision Making - Medical Decision Making 10/18/18 19:19 Patient signed out to me pending psychiatric evaluation He is requesting Percocet which he takes for chronic back pain which will be given We will make an attempt to contact psychiatry to get an ETA on arrival is patient is becoming impatient 10/19/18 00:30 Patient has been medically cleared, unfortunately [facility] is unable to offer that at this time Currently placing calls to additional facilities 10/19/18 07:16 I history *DC/Admit/Observation/Transfer Diagnosis at time of Disposition: Acute depression - Discharge Dispostion Disposition: TRANSFER ACUTE CARE/OTHER HOSP - Referrals Referrals: Da Lemus MD [Primary Care Provider] - - Patient Instructions - Post Discharge Activity Forms/Work/School Notes: My Personal Safety Plan
[2018-10-18] MEDS ORDERED: hydrALAZINE HCL 50 MG TABLET (FP) PO ONE (19:58)
[2018-10-18] MEDS ORDERED: LIDOCAINE PATCH REMOVAL MC SCH (22:00)
--- NOTE | 2018-10-18 22:11 | PN ---
Mental Health Exam - Mental Status Exam Alert and Oriented to: Time (disorientated in time an place. ), Place, Person Cognitive Function: Grossly Intact Patient Appearance: Unkempt, Disheveled Mood: Apathetic, Depressed, Anxious, Apprehensive ("Afraid odf what i may do to myself") Affect: Constricted Patient Behavior: Restless, Fatigued, Impulsive, Cooperative Speech Pattern: Perseverating ("i am so confused, i dont know what i will do if i dont get help". ) Voice Loudness: Mildly Soft/Quiet Thought Process: Disorganized, Disoriented Thought Disorder: Not Present Hallucinations: None Suicidal Ideation: Current, Plan ("to jum from the top of a building, or crash my car". ) Homicidal Ideation: None Insight/Judgement: Impaired Appetite: Poor ("i cant sleep at night". ) Muscle strength/Tone: Normal Additional Comments: This is a 62 yo male with multiple surgical complications from years of back surgery. Client has a history of being followed by therapy in [address] [place] [address]. client see a neuro logist also, taking gabapentin, on high doses of Oxycontin for pain. Client is hopeless, helpless,poor sleep, Incresed irritability and isolate himself, feeling anger, has a will and a plan to , to jump from a buildong.Stated he has been feeling this way for 3 weeks now, confirmed by son. His son Anupam Olsen, [phone], has removed the CRV from him for fear he will crash it in a moment of despair as pain is so severe. Clients currently in [place]. Dx Major Depression disorder with suicidal ideation. plan recommend admission to inpatient psychiatry, as he is a danger to self with active suicidal plan. spoke with attending, in ER also.
[2018-10-19] MEDS ORDERED: diphenhydrAMINE HCL 25 MG CAPSULE (FP) PO ONE ×2 (01:00→01:02)
--- NOTE | 2018-10-19 13:39 | EKG ---
Test Reason : Blood Pressure : / mmHG Vent. Rate : 072 BPM Atrial Rate : 072 BPM P-R Int : 196 ms QRS Dur : 104 ms QT Int : 400 ms P-R-T Axes : 044 014 030 degrees QTc Int : 438 ms NORMAL SINUS RHYTHM POSSIBLE ANTERIOR INFARCT , AGE UNDETERMINED ABNORMAL ECG WHEN COMPARED WITH ECG OF 28-MAY-2014 22:09, NONSPECIFIC T WAVE ABNORMALITY NO LONGER EVIDENT IN LATERAL LEADS Confirmed by REJI MELENDEZ MD ([id number]) on 10/19/2018 1:39:13 PM Referred By: Confirmed By:REJI MELENDEZ MD
[2018-10-19 17:06] VITALS: BP 140/90; PULSE 71; TEMP 98.3
--- NOTE | 2018-10-19 18:09 | PN ---
Progress Note (short form) - Note Progress Note: Psych Follow up; Patient seen for Psych follow up,. case4 discussed with staff. MS: alert, oriented, sitting with his Son and grand daughter. patient reports that he was in lot of pain that made him feel more depressed and suicidal. Today he feels much better. patient sees Psych in the [facility] and also has a therapist, Not delusional or have any thought disorder, Cognition is intact. Patients Son will bring him home with him and will take care of him and bring him to his treatment. Son is very reliable. Plan; Discharge home with [facility]. 2) Follow up with .
--- NOTE | 2018-10-19 18:23 | PDOC ---
*Physical Exam - Vital Signs Last Vital Signs Temp Pulse Resp BP Pulse Ox 98.3 F 71 16 140/90 96 10/19/18 17:05 10/19/18 17:05 10/19/18 07:15 10/19/18 17:05 10/19/18 17:05 - Physical Exam Comments: 10/19/18 18:23 gen: aaox3, nad, sitting up eating food. psych: nonsuicidal, nonhomicidal pt cooperative, states feeling better than last night ED Treatment Course - LABORATORY CBC & Chemistry Diagram: 10/18/18 12:44 10/18/18 12:44 - ADDITIONAL ORDERS Additional order review: 10/18/18 12:44 RBC 4.04 MCV 92.3 MCHC 33.1 RDW 14.4 D MPV 8.6 Neutrophils % 57.0 Lymphocytes % 32.1 Monocytes % 8.7 Eosinophils % 1.6 D Basophils % 0.6 - Medications Given in the ED: ED Medications Discontinued Medications Generic Name Dose Route Start Last Admin Trade Name Shyanne PRN Reason Stop Dose Admin Diphenhydramine HCl 25 mg 10/19/18 01:00 10/19/18 01:07 Benadryl - PO 10/19/18 01:01 25 mg ONCE ONE Administration Hydralazine HCl 50 mg 10/18/18 19:58 10/18/18 20:40 Apresoline - PO 10/18/18 19:59 Not Given ONCE ONE Hydromorphone HCl 1 mg 10/18/18 12:23 10/18/18 12:56 Dilaudid Injection - IVPB 10/18/18 12:24 1 mg ONCE ONE Administration Lidocaine 1 patch 10/18/18 12:23 10/18/18 12:57 Lidoderm Patch - TP 10/18/18 12:24 1 patch ONCE ONE Administration Methocarbamol 500 mg 10/18/18 12:23 10/18/18 12:57 Robaxin - PO 10/18/18 12:24 500 mg ONCE ONE Administration Metoprolol Succinate 50 mg 10/18/18 19:58 10/18/18 20:40 Toprol Xl - PO 10/18/18 19:59 Not Given ONCE ONE Oxycodone/Acetaminophen 2 combo 10/18/18 19:19 10/18/18 19:30 Percocet 5/325 - PO 10/18/18 19:20 2 combo ONCE ONE Administration Oxycodone/Acetaminophen 2 combo 10/19/18 09:16 10/19/18 09:23 Percocet 5/325 - PO 10/19/18 09:17 2 combo ONCE ONE Administration Medical Decision Making - Medical Decision Making 10/19/18 18:27 a/p:pt signed out from the prior ed physician -pt has been seen today by Dr. Banda -pt was suicidal last night -pt today states his pain was out of control last night - hx of multiple back surgeries in the past with chronic pain followed by his neurosx -pt denies SI/HI today -pt currently living with his son and granddaughter at home who is a strong support system -son at the bedside states he feels comfortable taking te paitent home -pt has an outpt psych he will call and arrange for follow up -will see his neurosx tomorrow for pain control -pt has been cleared by psych and is stable for dc to home *DC/Admit/Observation/Transfer Diagnosis at time of Disposition: Acute depression, Chronic pain - Discharge Dispostion Disposition: HOME Condition at time of disposition: Improved Decision to Admit order: No - Referrals Referrals: Da Lemus MD [Primary Care Provider] - - Patient Instructions Printed Discharge Instructions: DI for Suicidal Ideation-Adult, DI for Depression -- Adult Additional Instructions: Please see your neurosurgeon tomorrow. Please call your psychiatrist to arrange for follow up. Please return to the ED with any further concerns or complaints. - Post Discharge Activity Forms/Work/School Notes: My Personal Safety Plan
== END 2018-10-19 18:42 | disposition home or self-care (01) ==
LOC: JER 11:07
PROC: 3E033NZ Introduction of Analgesics, Hypnotics, Sedatives into Peripheral Vein, Percutaneous Approach (ICD-10-PCS; principal; 2018-10-18)
DX: M54.9 Dorsalgia, unspecified (principal); I10 Essential (primary) hypertension; M06.9 Rheumatoid arthritis, unspecified; M62.81 Muscle weakness (generalized); G89.29 Other chronic pain; K59.00 Constipation, unspecified; F32.9 Major depressive disorder, single episode, unspecified; Z96.651 Presence of right artificial knee joint
CPT/HCPCS: 36415; 80053; 80307; 85025; 93005; 93010; 99285-25

== ENCOUNTER 2024-11-17 18:40 | Emergency (ER) | payer OTHER ==
[2024-11-17 18:49] VITALS: TEMP 98.3; BMI 28.2
[2024-11-17] MEDS ORDERED: KETOROLAC TROMETHAMINE 15 MG/ML VIAL ONE (20:33)
[2024-11-17] MEDS: KETOROLAC TROMETHAMINE 15 MG/ML VIAL IM ONE (20:37)
[2024-11-17] MEDS: LIDOCAINE 5% TOPICAL PATCH TP ONE (20:57)
[2024-11-17] MEDS ORDERED: LIDOCAINE 5% TOPICAL PATCH ONE (20:59)
[2024-11-17] MEDS ORDERED: LIDOCAINE PATCH REMOVAL MC SCH (22:00)
[2024-11-17] MEDS ORDERED: FOLIC ACID 1 MG TABLET (FP) ONE (22:12)
[2024-11-17] MEDS ORDERED: CYANOCOBALAMIN (VITAMIN B-12) 1000 MCG/1 ML VIAL ONE (22:14)
[2024-11-17] MEDS: CYANOCOBALAMIN (VITAMIN B-12) 1000 MCG/1 ML VIAL IM ONE (22:21)
[2024-11-17] MEDS: FOLIC ACID 5 MG/1 ML SQ ONE (22:47)
[2024-11-17 22:54] VITALS: PULSE 85; RESP 18
[2024-11-17 22:55] VITALS: BP 155/86
== END 2024-11-17 22:55 | disposition home or self-care (01) ==
LOC: JER 18:40
PROC: 3E023GC Introduction of Other Therapeutic Substance into Muscle, Percutaneous Approach (ICD-10-PCS; principal; 2024-11-17)
PROC: 3E0233Z Introduction of Anti-inflammatory into Muscle, Percutaneous Approach (ICD-10-PCS; 2024-11-17)
PROC: 3E013GC Introduction of Other Therapeutic Substance into Subcutaneous Tissue, Percutaneous Approach (ICD-10-PCS; 2024-11-17)
DX: M06.9 Rheumatoid arthritis, unspecified (principal); M25.551 Pain in right hip; G89.29 Other chronic pain
CPT/HCPCS: 73521-TC-FY; 93005; 93010; 99284-25